=== PATIENT | female | born 1935 | race African-American/Black ===

== ENCOUNTER 2023-09-25 12:32 | Inpatient (IN) | payer MEDICARE, MEDICAID ==
[~2023-09-25] VITALS: Ht 162.6 cm; Wt 67.1 kg
[2023-09-25] MEDS ORDERED: HYDRALAZINE 20MG/ML VIAL IV ONE (13:00)
[2023-09-25 13:27] LABS: BASOPHILS % 0.4 % (0.0-2.0); EOSINOPHILS % 1.1 % (0.0-5.0); HEMATOCRIT. 30.8 % (36.0-48.0); HEMOGLOBIN. 10.2 g/dL (12.0-16.0); LYMPHOCYTES % 15.2 % (20.0-50.0); MEAN CORPUSCULAR HEMOGLOBIN 29.5 pg (28.0-32.0); MEAN CORPUSCULAR HGB CONC 33.1 g/dL (31.0-37.0); MEAN CORPUSCULAR VOLUME 89.2 fL (81.0-99.0); MEAN PLATELET VOLUME 8.9 fl (7.4-10.4); MONOCYTES % 5.7 % (2.0-8.0); NEUTROPHILS % 77.6 % (40.0-76.0); PLATELET 149 x1000/uL (130-400); RED BLOOD CELL COUNT 3.45 mill/uL (4.2-5.4); RED CELL DISTRIBUTION WIDTH 16.7 % (11.6-14.6); WHITE BLOOD COUNT 7.2 x1000/uL (4.5-11.0)
[2023-09-25 14:11] LABS: ALANINE AMINOTRANSFERASE 9 IU/L (10-49); ALBUMIN 3.9 g/dL (3.2-4.8); ASPARTATE AMINOTRANSFERASE 17 IU/L (<34); BILIRUBIN TOTAL 0.3 mg/dL (0.1-1.0); CALCIUM 9.3 mg/dL (8.7-10.4); CARBON DIOXIDE 23 mEq/L (21-32); CHLORIDE 103 mEq/L (98-107); GLUCOSE 115 mg/dL (70-105); POTASSIUM 4.9 mEq/L (3.5-5.1); PROTEIN TOTAL 6.9 g/dL (6.0-8.3); SODIUM 138 mEq/L (136-145); TROPONIN I HIGH SENSITIVITY 21 ng/L (3.0-34); UREA NITROGEN BLOOD 43 mg/dL (9-23)
[2023-09-25 14:16] LABS: ETHANOL BLOOD < 10 mg/dL (<10)
[2023-09-25 14:17] LABS: CREATININE 6.6 mg/dL (0.6-1.0)
[2023-09-25] MEDS ORDERED: ONDANSETRON HCL 4MG/2ML INJ IV ONE (14:45)
[2023-09-25] MEDS ORDERED: IPRATROPIUM/ALBUTEROL 0.5-3(2.5)MG/3ML NEB HHN PRN (16:30)
[2023-09-25] MEDS ORDERED: DIPHENHYDRAMINE 50MG/ML VIAL IV PRN (16:30)
[2023-09-25] MEDS ORDERED: ONDANSETRON HCL 4MG/2ML INJ IV PRN (16:30)
[2023-09-25 20:00] VITALS: BP 204/61; PULSE 55; RESP 18; TEMP 98.1
[2023-09-25 20:01] LABS: TROPONIN I HIGH SENSITIVITY 21 ng/L (3.0-34)
[2023-09-25] MEDS: CLONIDINE 0.1MG TABLET PO PRN (20:23)
[2023-09-25 20:30] VITALS: BP 204/61; PULSE 55; RESP 18; TEMP 98.1
[2023-09-25] MEDS: METOPROLOL TARTRATE 25MG TABLET PO SCH (20:49)
[2023-09-25 21:11] VITALS: BP 171/55; PULSE 51
[2023-09-26] VITALS (8 sets, daily range): BP systolic 144–187; BP diastolic 43–67; PULSE 45–69; RESP 13–22; TEMP 97.2–98.8
[2023-09-26 06:27] LABS: BASOPHILS % 0.6 % (0.0-2.0); EOSINOPHILS % 3.2 % (0.0-5.0); HEMATOCRIT. 30.4 % (36.0-48.0); LYMPHOCYTES % 25.6 % (20.0-50.0); MEAN CORPUSCULAR HEMOGLOBIN 28.8 pg (28.0-32.0); MEAN CORPUSCULAR HGB CONC 32.8 g/dL (31.0-37.0); MEAN CORPUSCULAR VOLUME 87.8 fL (81.0-99.0); MEAN PLATELET VOLUME 9.8 fl (7.4-10.4); MONOCYTES % 7.2 % (2.0-8.0); NEUTROPHILS % 63.4 % (40.0-76.0); PLATELET 147 x1000/uL (130-400); RED BLOOD CELL COUNT 3.47 mill/uL (4.2-5.4); RED CELL DISTRIBUTION WIDTH 16.8 % (11.6-14.6)
[2023-09-26 06:50] LABS: ALANINE AMINOTRANSFERASE 8 IU/L (10-49); ALBUMIN 3.4 g/dL (3.2-4.8); ASPARTATE AMINOTRANSFERASE 14 IU/L (<34); BILIRUBIN TOTAL 0.3 mg/dL (0.1-1.0); CALCIUM 8.9 mg/dL (8.7-10.4); CARBON DIOXIDE 25 mEq/L (21-32); CHLORIDE 104 mEq/L (98-107); GLUCOSE 92 mg/dL (70-105); POTASSIUM 5.2 mEq/L (3.5-5.1); SODIUM 141 mEq/L (136-145); UREA NITROGEN BLOOD 51 mg/dL (9-23)
[2023-09-26 06:51] LABS: CREATININE 7.8 mg/dL (0.6-1.0)
[2023-09-26] MEDS: HYDRALAZINE 20MG/ML VIAL IV PRN (08:19)
[2023-09-26] MEDS: LISINOPRIL 20MG TABLET PO SCH (08:20)
[2023-09-26] MEDS: AMLODIPINE 10MG TABLET PO SCH (08:29)
[2023-09-26] MEDS: SODIUM POLYSTYRENE SULFONATE 15 G/60 ML BOT PO NR (14:37)
[2023-09-26 22:00] LABS: HEPATITIS A AB IGM NEGATIVE (Negative); HEPATITIS B CORE AB IGM NEGATIVE (Negative); HEPATITIS B SURFACE ANTIGEN NEGATIVE (Negative); HEPATITIS C AB NON REACTIVE (Neg) (Negative)
[2023-09-27] VITALS (15 sets, daily range): BP systolic 107–200; BP diastolic 52–85; PULSE 60–83; RESP 15–20; TEMP 97.2–99.5; O2SAT 99
[2023-09-27 07:43] LABS: HEMATOCRIT. 30.7 % (36.0-48.0); HEMOGLOBIN. 10.1 g/dL (12.0-16.0); MEAN CORPUSCULAR HEMOGLOBIN 29.1 pg (28.0-32.0); MEAN CORPUSCULAR HGB CONC 32.8 g/dL (31.0-37.0); MEAN CORPUSCULAR VOLUME 88.7 fL (81.0-99.0); MEAN PLATELET VOLUME 10.5 fl (7.4-10.4); PLATELET 169 x1000/uL (130-400); RED BLOOD CELL COUNT 3.47 mill/uL (4.2-5.4); RED CELL DISTRIBUTION WIDTH 17.1 % (11.6-14.6)
[2023-09-27 07:46] LABS: DIFFERENTIAL COMMENT 1
[2023-09-27 09:10] LABS: CALCIUM 9.2 mg/dL (8.7-10.4); CARBON DIOXIDE 22 mEq/L (21-32); CHLORIDE 103 mEq/L (98-107); GLUCOSE 102 mg/dL (70-105); PHOSPHORUS 4.1 mg/dL (2.5-4.9); POTASSIUM 4.7 mEq/L (3.5-5.1); SODIUM 141 mEq/L (136-145); UREA NITROGEN BLOOD 66 mg/dL (9-23)
[2023-09-27 09:11] LABS: CREATININE 9.4 mg/dL (0.6-1.0)
[2023-09-27] MEDS ORDERED: AMLO10TA80 PO (09:11)
[2023-09-27] MEDS ORDERED: METO25TA6 PO (09:11)
[2023-09-27] MEDS ORDERED: ASPI-1497 MT (09:11)
[2023-09-27] MEDS ORDERED: LISI20TA31 PO (09:11)
[2023-09-27] MEDS: ASPIRIN 81MG TABLET PO SCH (11:04)
[2023-09-27] MEDS ORDERED: DIPHENHYDRAMINE 50MG/ML VIAL ONE (12:24)
[2023-09-27 16:56] LABS: PLATELET ESTIMATE NORMAL
[2023-09-27] MEDS: ACETAMINOPHEN 325MG TABLET PO PRN (21:05)
[2023-09-28] VITALS: BP 120/47; PULSE 58; RESP 20; TEMP 98.9
[2023-09-28 04:00] VITALS: BP 137/68; PULSE 59; RESP 18; TEMP 99.1
[2023-09-28 08:00] VITALS: BP 191/58; PULSE 59; RESP 17; TEMP 98.1
[2023-09-28 12:00] VITALS: BP 150/45; PULSE 56; RESP 15; TEMP 97
[2023-09-28 16:00] VITALS: BP 155/54; PULSE 57; RESP 15; TEMP 97.3
[2023-09-28 16:20] VITALS: BP 150/45; PULSE 56; TEMP 97; O2SAT 100
== END 2023-09-28 18:10 | DRG 77 ==
LOC: ER 12:32 → 7WST 14:37 → EDBEDREQTM 14:39 → EDBEDREQ 14:39
PROVIDERS: ADMIT Internal Medicine; ATTEND Internal Medicine
PROC: 5A1D70Z Performance of Urinary Filtration, Intermittent, Less than 6 Hours Per Day (ICD-10-PCS; principal; 2023-09-26)
PROC: 5A1D70Z Performance of Urinary Filtration, Intermittent, Less than 6 Hours Per Day (ICD-10-PCS; 2023-09-28)
DX: I67.4 Hypertensive encephalopathy (principal); N18.6 End stage renal disease; I12.0 Hypertensive chronic kidney disease with stage 5 chronic kidney disease or end stage renal disease; I16.0 Hypertensive urgency; E78.5 Hyperlipidemia, unspecified; E87.5 Hyperkalemia; Z82.49 Family history of ischemic heart disease and other diseases of the circulatory system; Z83.3 Family history of diabetes mellitus; Z88.0 Allergy status to penicillin; Z88.6 Allergy status to analgesic agent; Z99.2 Dependence on renal dialysis; Z86.73 Personal history of transient ischemic attack (TIA), and cerebral infarction without residual deficits
CPT/HCPCS: 36415; 70551; 71045; 80048; 80053; 80061; 80320; 83735; 83880; 84100; 84484; 85025; 86705; 86709; 87340; 90935; 93005; 93306; 93970; 99285; J0360; J1200; G0480

== ENCOUNTER 2025-01-18 09:07 | Inpatient (IN) | payer MEDICARE, MEDICAID ==
[~2025-01-18] VITALS: Ht 154.9 cm; Wt 68.0 kg
[~2025-01-18 09:07] MED LIST: AMLO10TA80 PO; ASPI-1497 MT; FOLI1TAB87 PO; HYDR25TA78 PO; LISI20TA31 PO; METO25TA6 PO; SEVE800T25; SULF1TAB47 MT
[2025-01-18] MEDS: SODIUM CHLORIDE 0.9% 500 ML IV ONE (09:48)
[2025-01-18] MEDS: LIDOCAINE HCL/PF 1% 10 MG/ML 5ML VIAL INFIL ONE (09:49)
[2025-01-18 11:03] LABS: BASOPHILS % 0.5 % (0.0-2.0); EOSINOPHILS % 1.3 % (0.0-5.0); HEMATOCRIT. 24.9 % (36.0-48.0); HEMOGLOBIN. 8.3 g/dL (12.0-16.0); LYMPHOCYTES % 13.3 % (20.0-50.0); MEAN CORPUSCULAR HEMOGLOBIN 32.1 pg (28.0-32.0); MEAN CORPUSCULAR HGB CONC 33.5 g/dL (31.0-37.0); MEAN CORPUSCULAR VOLUME 95.9 fL (81.0-99.0); MEAN PLATELET VOLUME 10.4 fl (7.4-10.4); MONOCYTES % 7.3 % (2.0-8.0); NEUTROPHILS % 77.6 % (40.0-76.0); PLATELET 159 x1000/uL (130-400); RED CELL DISTRIBUTION WIDTH 14.8 % (11.6-14.6); WHITE BLOOD COUNT 12.1 x1000/uL (4.5-11.0)
[2025-01-18 11:11] LABS: INR 1.1; PROTHROMBIN TIME 11.4 sec (9.6-11.0)
[2025-01-18 11:48] LABS: CALCIUM 8.3 mg/dL (8.7-10.4)
[2025-01-18 12:44] LABS: CREATININE 6.8 mg/dL (0.6-1.0)
[2025-01-18 13:00] VITALS: BP 101/35; PULSE 65; RESP 18; TEMP 36.6
[2025-01-18 13:15] VITALS: BP 101/35; PULSE 65; RESP 18; TEMP 36.6; O2SAT 99
[2025-01-18 13:16] VITALS: BP 96/33
[2025-01-18 13:17] LABS: HEPATITIS B SURFACE ANTIGEN NEGATIVE (Negative)
[2025-01-18 13:37] LABS: HEPATITIS A AB IGM NEGATIVE (Negative)
[2025-01-18 13:38] LABS: HEPATITIS B CORE AB IGM NEGATIVE (Negative); HEPATITIS C AB NON REACTIVE (Neg) (Negative)
[2025-01-18 13:59] LABS: HIV 1/2 AB P24AG Negative (Negative)
[2025-01-18 16:00] VITALS: BP 101/34; PULSE 68; RESP 18; TEMP 36.6; O2SAT 99
[2025-01-18 16:18] LABS: HEPATITIS B SURFACE ANTIGEN NEGATIVE
[2025-01-18 16:19] LABS: HEPATITIS C VIR.AB 0.04 INDEXVAL (0.00-0.80)
[2025-01-18 20:00] VITALS: BP 108/36; PULSE 66; RESP 18; TEMP 36.3; O2SAT 99
[2025-01-18] MEDS ORDERED: ONDANSETRON HCL 4MG/2ML INJ IV PRN (22:30)
[2025-01-18] MEDS ORDERED: ACETAMINOPHEN 325MG TABLET PO PRN ×2 (22:30)
[2025-01-18] MEDS ORDERED: ZOLPIDEM TARTRATE 5MG TABLET PO PRN (22:30)
[2025-01-18] MEDS ORDERED: MAGNESIUM/ALUMINUM HYDROXIDE/SIMETHICONE 30ML UDC PO PRN (22:30)
[2025-01-18] MEDS ORDERED: DIPHENHYDRAMINE 50MG/ML VIAL IV PRN (22:30)
[2025-01-19] VITALS: BP 125/38; PULSE 59; RESP 16; TEMP 36.4; O2SAT 100
[2025-01-19 04:00] VITALS: BP 107/38; PULSE 81; RESP 17; TEMP 36.6; O2SAT 99
[2025-01-19] MEDS: SODIUM CHLORIDE 0.9% 3ML FLUSH IVF SCH (06:37)
[2025-01-19] MEDS: SEVELAMER CARBONATE 800 MG TABLET PO SCH (06:37)
[2025-01-19 07:05] LABS: BASOPHILS % 0.7 % (0.0-2.0); DIFFERENTIAL COMMENT 0; EOSINOPHILS % 1.6 % (0.0-5.0); MEAN CORPUSCULAR HEMOGLOBIN 31.8 pg (28.0-32.0); MEAN CORPUSCULAR HGB CONC 33.2 g/dL (31.0-37.0); MEAN CORPUSCULAR VOLUME 95.8 fL (81.0-99.0); MEAN PLATELET VOLUME 11.3 fl (7.4-10.4); MONOCYTES % 8.2 % (2.0-8.0); NEUTROPHILS % 70.5 % (40.0-76.0); PLATELET 116 x1000/uL (130-400); RED BLOOD CELL COUNT 2.08 mill/uL (4.2-5.4); WHITE BLOOD COUNT 7.8 x1000/uL (4.5-11.0)
[2025-01-19 07:12] LABS: POTASSIUM 4.7 mEq/L (3.5-5.1)
[2025-01-19 07:13] LABS: CALCIUM 8.8 mg/dL (8.7-10.4)
[2025-01-19 07:38] LABS: HEMOGLOBIN. 6.6 g/dL (12.0-16.0)
[2025-01-19 08:00] VITALS: BP 128/41; PULSE 70; RESP 16; TEMP 36.3; O2SAT 100
[2025-01-19] MEDS: FOLIC ACID/VITAMIN B COMP W-C TABLET PO SCH (09:00)
[2025-01-19] MEDS ORDERED: BUPIVACAINE HCL/PF 0.5% (5MG/ML) 10ML ONE (09:40)
[2025-01-19] MEDS ORDERED: POLYMYXIN B SULFATE 500000 UNITS/VIAL ONE (09:40)
[2025-01-19] MEDS ORDERED: BACITRACIN 14GM TUBE TOP ONE (09:40)
[2025-01-19] MEDS ORDERED: THROMBIN (BOVINE) 5000 UNITS/VIAL TOP ONE (09:40)
[2025-01-19] MEDS ORDERED: LIDOCAINE HCL 1% 10 MG/ML 10ML VIAL ONE ×2 (09:40→10:18)
[2025-01-19] MEDS ORDERED: HEPARIN SODIUM 1,000 UNIT/1ML VIAL IV ONE (09:41)
[2025-01-19] MEDS ORDERED: ONDANSETRON HCL 4MG/2ML INJ ONE (10:18)
[2025-01-19] MEDS ORDERED: FENTANYL CITRATE/PF 50MCG/ML 2ML VIAL ONE ×2 (10:19→11:58)
[2025-01-19] MEDS ORDERED: PROPOFOL 200MG/20ML VIAL IV ONE ×2 (10:19→11:55)
[2025-01-19] MEDS ORDERED: FAMOTIDINE 20MG/2ML VIAL IV ONE (10:30)
[2025-01-19] MEDS ORDERED: FENTANYL CITRATE/PF 50MCG/ML 2ML VIAL IV PRN (11:45)
[2025-01-19] MEDS ORDERED: ONDANSETRON HCL 4MG/2ML INJ IV PRN (11:45)
[2025-01-19 12:00] VITALS: BP 135/48; PULSE 86; RESP 22; TEMP 36; O2SAT 98
[2025-01-19] MEDS ORDERED: PROTAMINE SULFATE 10MG/ML VIAL 5ML IV ONE (12:08)
[2025-01-19] MEDS ORDERED: HEPARIN 1000 UNITS/ML 10ML ONE (12:20)
[2025-01-19 16:00] VITALS: BP 135/48; PULSE 86; RESP 22; TEMP 36; O2SAT 98
[2025-01-19 20:00] VITALS: BP 134/48; PULSE 82; RESP 18; TEMP 36.6; O2SAT 98
[2025-01-20] VITALS (7 sets, daily range): BP systolic 88–168; BP diastolic 42–97; PULSE 69–100; RESP 18–20; TEMP 36.3–36.8; O2SAT 95–100
[2025-01-20] MEDS: ACETAMINOPHEN 325MG TABLET PO PRN (18:21)
[2025-01-21] VITALS: BP 151/51; PULSE 70; RESP 18; TEMP 36.5; O2SAT 94
[2025-01-21 04:00] VITALS: BP 155/52; PULSE 66; RESP 18; TEMP 36.5; O2SAT 99
[2025-01-21 08:00] VITALS: BP 152/55; PULSE 61; RESP 17; TEMP 36.3; O2SAT 98
[2025-01-21 12:00] VITALS: BP 151/49; PULSE 65; RESP 19; TEMP 35.9; O2SAT 100
[2025-01-21 16:00] VITALS: BP 164/98; PULSE 72; RESP 19; TEMP 36; O2SAT 100
[2025-01-21] MEDS: CLONIDINE 0.1MG TABLET PO PRN (16:48)
[2025-01-21 20:00] VITALS: BP 165/63; PULSE 65; RESP 18; TEMP 36.4; O2SAT 95
[2025-01-21] MEDS: HYDRALAZINE HCL 25MG TABLET PO SCH (21:18)
[2025-01-21] MEDS: AMLODIPINE 5MG TABLET PO SCH (21:18)
[2025-01-22] VITALS (23 sets, daily range): BP systolic 75–182; BP diastolic 46–92; PULSE 60–81; RESP 13–22; TEMP 36.4–36.8; O2SAT 70–100
[2025-01-22 03:52] LABS: BASOPHILS % 0.7 % (0.0-2.0); EOSINOPHILS % 2.3 % (0.0-5.0); HEMATOCRIT. 26.5 % (36.0-48.0); MEAN CORPUSCULAR HEMOGLOBIN 30.7 pg (28.0-32.0); MEAN CORPUSCULAR HGB CONC 33.8 g/dL (31.0-37.0); MEAN CORPUSCULAR VOLUME 90.7 fL (81.0-99.0); MEAN PLATELET VOLUME 9.7 fl (7.4-10.4); MONOCYTES % 6.3 % (2.0-8.0); NEUTROPHILS % 78.7 % (40.0-76.0); PLATELET 137 x1000/uL (130-400); RED BLOOD CELL COUNT 2.92 mill/uL (4.2-5.4); RED CELL DISTRIBUTION WIDTH 15.1 % (11.6-14.6); WHITE BLOOD COUNT 9.6 x1000/uL (4.5-11.0)
[2025-01-22 03:57] LABS: PARTIAL THROMBOPLASTIN TIME 27.3 sec (23.4-31.0); PROTHROMBIN TIME 10.4 sec (9.6-11.0)
[2025-01-22 04:07] LABS: CARBON DIOXIDE 22 mEq/L (21-32); CHLORIDE 99 mEq/L (98-107); POTASSIUM 5.8 mEq/L (3.5-5.1); SODIUM 136 mEq/L (136-145)
[2025-01-22 04:08] LABS: CALCIUM 8.4 mg/dL (8.7-10.4)
[2025-01-22 04:13] LABS: GLUCOSE 102 mg/dL (70-105); UREA NITROGEN BLOOD 79 mg/dL (9-23)
[2025-01-22 04:15] LABS: ALBUMIN 3.3 g/dL (3.2-4.8); PHOSPHORUS 4.9 mg/dL (2.5-4.9)
[2025-01-22 04:27] LABS: CREATININE 12.8 mg/dL (0.6-1.0)
[2025-01-22] MEDS: CLINDAMYCIN 600MG PREMIX 50 ML IV SCH (07:45)
[2025-01-22] MEDS ORDERED: LIDOCAINE HCL 1% 10 MG/ML 10ML VIAL ONE (08:25)
[2025-01-22] MEDS ORDERED: HEPARIN 1000 UNITS/ML 10ML ONE (08:25)
[2025-01-22] MEDS ORDERED: FENTANYL CITRATE/PF 50MCG/ML 2ML VIAL ONE (08:31)
[2025-01-23] VITALS: BP 108/51; PULSE 71; RESP 18; TEMP 36.1; O2SAT 98
[2025-01-23 04:00] VITALS: BP 114/66; PULSE 74; RESP 18; TEMP 36; O2SAT 98
[2025-01-23 05:06] VITALS: BP 170/70; PULSE 80; RESP 20; TEMP 36.55848
[2025-01-23 08:00] VITALS: BP 134/48; PULSE 71; RESP 18; TEMP 36.3; O2SAT 98
[2025-01-23 13:30] VITALS: BP 142/59; PULSE 68; TEMP 97.2; O2SAT 100
[2025-01-23 14:04] VITALS: BP 128/78; PULSE 84; TEMP 98.7; O2SAT 99
== END 2025-01-23 14:34 | DRG 252 ==
LOC: ER 09:07 → EDBEDREQ 09:18 → 5WST 12:03 → EDBEDREQ 12:16 → ENRESERV 12:18
PROVIDERS: ADMIT Internal Medicine; ATTEND Internal Medicine
PROC: 30233N1 Transfusion of Nonautologous Red Blood Cells into Peripheral Vein, Percutaneous Approach (ICD-10-PCS; principal; 2025-01-19)
PROC: 03160JF Bypass Left Axillary Artery to Lower Arm Vein with Synthetic Substitute, Open Approach (ICD-10-PCS; 2025-01-19)
PROC: 05CF0ZZ Extirpation of Matter from Left Cephalic Vein, Open Approach (ICD-10-PCS; 2025-01-19)
PROC: 5A1D70Z Performance of Urinary Filtration, Intermittent, Less than 6 Hours Per Day (ICD-10-PCS; 2025-01-22)
PROC: 0JH63XZ Insertion of Tunneled Vascular Access Device into Chest Subcutaneous Tissue and Fascia, Percutaneous Approach (ICD-10-PCS; 2025-01-22)
PROC: 02H633Z Insertion of Infusion Device into Right Atrium, Percutaneous Approach (ICD-10-PCS; 2025-01-22)
PROC: B518ZZA Fluoroscopy of Superior Vena Cava, Guidance (ICD-10-PCS; 2025-01-22)
PROC: B548ZZA Ultrasonography of Superior Vena Cava, Guidance (ICD-10-PCS; 2025-01-22)
DX: T82.838A Hemorrhage due to vascular prosthetic devices, implants and grafts, initial encounter (principal); N18.6 End stage renal disease; I13.2 Hypertensive heart and chronic kidney disease with heart failure and with stage 5 chronic kidney disease, or end stage renal disease; E87.5 Hyperkalemia; D63.1 Anemia in chronic kidney disease; E78.00 Pure hypercholesterolemia, unspecified; F03.90 Unspecified dementia, unspecified severity, without behavioral disturbance, psychotic disturbance, mood disturbance, and anxiety; T82.898A Other specified complication of vascular prosthetic devices, implants and grafts, initial encounter; I50.9 Heart failure, unspecified; R41.89 Other symptoms and signs involving cognitive functions and awareness; Y71.2 Prosthetic and other implants, materials and accessory cardiovascular devices associated with adverse incidents; Y92.89 Other specified places as the place of occurrence of the external cause; Z86.73 Personal history of transient ischemic attack (TIA), and cerebral infarction without residual deficits; Z88.0 Allergy status to penicillin; Z88.5 Allergy status to narcotic agent; Z88.6 Allergy status to analgesic agent; Z99.2 Dependence on renal dialysis
CPT/HCPCS: 36415; 36558; 77001; 80048; 80069; 82962; 85025; 86705; 86709; 86850; 86900; 86920; 87340; 88304; 90935; 99152; 99291; A4606; J0665; J1308; J1644; J2003; J2405; J2704; J2720; J3010; J3490; J7030; P9016; C1768; G0500